=== PATIENT | female | born 2005 | race African-American/Black ===

== ENCOUNTER 2024-06-28 08:44 | Emergency (ER) | payer SELFPAY ==
[~2024-06-28] VITALS: Ht 170.2 cm; Wt 58.6 kg
[2024-06-28 08:49] VITALS: TEMP 98.7
[2024-06-28] MEDS ORDERED: Ondansetron 4 MG/2 ML VIAL IV ONE ×2 (09:30→12:30)
[2024-06-28] MEDS ORDERED: NS 1,000 ML IV ONE (09:30)
[2024-06-28 10:28] LABS: ALANINE AMINOTRANSFERASE 8 U/L (0-55); ALBUMIN 3.8 g/dL (3.5-5.0); ALKALINE PHOSPHATASE 65 U/L (40-150); ANION GAP 13 mmol/L (7-16); AST,SGOT 11 U/L (5-34); BILIRUBIN,TOTAL 0.4 mg/dL (0.2-1.2); CALCIUM 9.6 mg/dL (8.4-10.2); CHLORIDE 105 mEq/L (98-107); CREATININE, serum 0.74 mg/dL (0.57-1.11); GLUCOSE 89 mg/dL (70-99); LIPASE 58 U/L (8-78); POTASSIUM 3.5 mEq/L (3.5-4.5); SODIUM 135 mEq/L (136-145); TOTAL PROTEIN 7.2 g/dl (6.2-8.1)
[2024-06-28 10:29] LABS: BLOOD UREA NITROGEN < 5 mg/dL (7-19)
[2024-06-28 10:33] LABS: BASO % 0.2 % (0.0-2.0); EOS # 0.1 K/mm3 (0.0-0.7); EOS % 1.8 % (0.0-4.0); GRAN # 2.8 K/mm3 (1.4-6.5); GRAN % 63.6 % (42.2-75.2); HEMATOCRIT 39.5 % (35.0-45.0); HEMOGLOBIN 13.1 g/dl (12.0-15.0); LYMPH # 1.2 K/mm3 (1.2-3.4); LYMPH % 27.3 % (20.0-51.0); MEAN CELL VOLUME 88 fl (80.0-95.0); MEAN CORPUSCULAR HEMOGLOBIN 29 pg (26-32); MEAN CORPUSCULAR HGB CONC 33 g/dl (33.0-37.0); MONO # 0.3 K/mm3 (0.1-0.6); MONO % 6.9 % (1.7-9.3); PLATELET COUNT 285 K/mm3 (130-400); REDCELL DISTRIBUTION WIDTH-CV 13.8 % (11.5-14.5)
[2024-06-28 10:52] LABS: HCG,QUANTITATIVE 70140 mIU/mL
[2024-06-28 11:30] LABS: COLLECTION METHOD CLEAN CATCH
[2024-06-28 11:49] LABS: URINE APPEARANCE CLEAR (CLEAR/HAZY); URINE BLOOD NEGATIVE (NEGATIVE); URINE COLOR YELLOW (YELLOW); URINE GLUCOSE NEGATIVE (NEGATIVE); URINE KETONE 4+ (NEGATIVE); URINE NITRATE NEGATIVE (NEGATIVE); URINE PROTEIN(semi-quant) TRACE (NEGATIVE)
[2024-06-28] MEDS ORDERED: ZOFRAN ODT4 MG PO (12:08)
[2024-06-28] MEDS ORDERED: Cephalexin 500 MG CAP PO ONE (12:30)
[2024-06-28] MEDS ORDERED: CEPHALEXIN250 M1 PO (12:30)
[2024-06-28 12:40] VITALS: BP 120/74; PULSE 67
== END 2024-06-28 12:49 | disposition home or self-care (01) ==
LOC: COL.ER 08:44
PROVIDERS: Family Medicine
DX: O21.0 Mild hyperemesis gravidarum (principal); O23.41 Unspecified infection of urinary tract in pregnancy, first trimester; N39.0 Urinary tract infection, site not specified
CPT/HCPCS: J2405; J7030

== ENCOUNTER 2024-06-30 14:54 | Observation (INO) | payer OTHER ==
[~2024-06-30] VITALS: Ht 170.2 cm; Wt 58.2 kg
[~2024-06-30 14:54] MED LIST: CEPHALEXIN250 M1 PO; ZOFRAN ODT4 MG PO
[2024-06-30] MEDS ORDERED: LR 1,000 ML IV ONE (15:15)
[2024-06-30] MEDS ORDERED: D5LR 1,000 ML IV ONE (15:30)
[2024-06-30 15:33] LABS: BASO % 0.4 % (0.0-2.0); EOS % 0.8 % (0.0-4.0); GRAN # 2.7 K/mm3 (1.4-6.5); GRAN % 55.6 % (42.2-75.2); HEMATOCRIT 38.1 % (35.0-45.0); LYMPH # 1.6 K/mm3 (1.2-3.4); LYMPH % 32.9 % (20.0-51.0); MEAN CELL VOLUME 85 fl (80.0-95.0); MEAN CORPUSCULAR HEMOGLOBIN 29 pg (26-32); MEAN CORPUSCULAR HGB CONC 34 g/dl (33.0-37.0); MEAN PLATELET VOLUME 10.3 fl (7.4-10.4); MONO # 0.5 K/mm3 (0.1-0.6); MONO % 10.1 % (1.7-9.3); PLATELET COUNT 275 K/mm3 (130-400); RED BLOOD COUNT 4.47 M/mm3 (4.10-5.30); REDCELL DISTRIBUTION WIDTH-CV 13.7 % (11.5-14.5)
[2024-06-30 15:51] LABS: ALBUMIN 3.9 g/dL (3.5-5.0); BILIRUBIN,TOTAL 0.4 mg/dL (0.2-1.2); CALCIUM 9.3 mg/dL (8.4-10.2); CREATININE, serum 0.77 mg/dL (0.57-1.11); POTASSIUM 3.5 mEq/L (3.5-4.5); TOTAL PROTEIN 7.2 g/dl (6.2-8.1)
[2024-06-30 17:28] LABS: COLLECTION METHOD CLEAN CATCH
--- NOTE | 2024-06-30 17:30 | NUR ---
Pt to floor from ED for recurrent nausea and vomiting. Vs WNL. Pt denies LOF and VB. Pt states that she just moved here last week. Pt states that she is 13 weeks , but is unsure of her LMP; believes it was "January in the teens maybe the ". Pt also states that she has a hx of HTN, but resolved it with her diet. Pt also stated that she has been vomiting since she became and has lost almost 30 lbs. Pt came in to ED today because she was vomiting "bright red blood", and her stomach hurts. She has heartburn if she eats anything and vomits within an hour. Pt reported being the ED on monday as well with N/V, abdominal pain, and a headache that caused her right eye to be "messed up". Pt is currently taking Keflex for a UTI, but says that her nausea medication is no longer working for her.
[2024-06-30] MEDS ORDERED: Pantoprazole 40 MG in NS 10 ML IV SCH (17:33)
[2024-06-30 17:39] LABS: PH 5.5 (5.0-8.5); URINE APPEARANCE CLEAR (CLEAR/HAZY); URINE BLOOD NEGATIVE (NEGATIVE); URINE COLOR YELLOW (YELLOW); URINE GLUCOSE 3+ (NEGATIVE); URINE KETONE 4+ (NEGATIVE); URINE NITRATE NEGATIVE (NEGATIVE); URINE PROTEIN(semi-quant) NEGATIVE (NEGATIVE); URINE UROBILINOGEN 0.2 E.U/dL (0.2-1.0)
[2024-06-30 17:40] VITALS: BP 119/83; PULSE 69; TEMP 98.4
[2024-06-30] MEDS ORDERED: D5LR 1,000 ML IV SCH (17:45)
[2024-06-30] MEDS ORDERED: Cephalexin 500 MG CAP PO SCH (17:45)
[2024-06-30] MEDS ORDERED: PROMETHAZINE 12.5 MG RC PRN (17:45)
[2024-06-30] MEDS ORDERED: PRILOSEC 20MG20 MG PO (18:47)
[2024-06-30] MEDS ORDERED: REGLAN 10MG10 MG/TAB PO (18:48)
--- NOTE | 2024-06-30 19:30 | NUR ---
1930 IV FLUIDS STARTED AT INT SITE. SPITTING UP MUCOUS EVERY SO OFTEN. NO EMESIS. STATES HAS NO NAUSEA AT THIS TIME. UP TO BR WITH SOME ASSIST AND VOIDED. MARBELLA BEING UP WELL. VOICES NO OTHER COMPLAINTS.
[2024-06-30 20:00] VITALS: BP 125/71; PULSE 65; TEMP 99
[2024-06-30] MEDS ORDERED: PYRIDOXINE 25 MG PO SCH (21:00)
[2024-06-30] MEDS ORDERED: DOXYLAMINE 25 MG PO SCH (21:00)
[2024-06-30 21:17] LABS: HIV 1/2 Antibodies Non-Reactive; HIV-1p24 Antigen Non-Reactive
[2024-06-30] MEDS ORDERED: Folic Acid 1 MG,Thiamine 200 MG in NS 1,000 ML IV ONE (22:00)
[2024-07-01] VITALS: BP 124/78; PULSE 102; TEMP 98.8
--- NOTE | 2024-07-01 | NUR ---
0000 UP TO BR ON OWN TONIGHT WITH NO PROBLEMS. IV CONTS TO INFUSE PER PUMP. NO C/O OF ANY NAUSEA AT THIS TIME. SCHEDULE MED GIVEN.
[2024-07-01 04:00] VITALS: BP 106/66; PULSE 102; TEMP 98.3
[2024-07-01 07:15] VITALS: BP 116/72; PULSE 72; TEMP 98.5
[2024-07-01] MEDS ORDERED: Metoclopramide 10 MG TAB PO SCH (08:00)
[2024-07-01 09:31] LABS: TRICYCLIC ANTIDEPRESS URINE NEGATIVE (NEGATIVE)
[2024-07-01 10:36] LABS: MEAN CELL VOLUME 84 fl (80.0-95.0); MEAN CORPUSCULAR HGB CONC 35 g/dl (33.0-37.0); MEAN PLATELET VOLUME 10.2 fl (7.4-10.4); PLATELET COUNT 217 K/mm3 (130-400); RED BLOOD COUNT 3.48 M/mm3 (4.10-5.30); REDCELL DISTRIBUTION WIDTH-CV 13.7 % (11.5-14.5)
[2024-07-01 10:39] LABS: HEMATOCRIT 29.3 % (35.0-45.0); HEMOGLOBIN 10.1 g/dl (12.0-15.0); MEAN CORPUSCULAR HEMOGLOBIN 29 pg (26-32)
[2024-07-01 10:55] LABS: ALBUMIN 2.9 g/dL (3.5-5.0); ALKALINE PHOSPHATASE 46 U/L (40-150); ANION GAP 7 mmol/L (7-16); AST,SGOT 9 U/L (5-34); BILIRUBIN,TOTAL 0.3 mg/dL (0.2-1.2); CALCIUM 7.9 mg/dL (8.4-10.2); CHLORIDE 110 mEq/L (98-107); CREATININE, serum 0.68 mg/dL (0.57-1.11); GLUCOSE 95 mg/dL (70-99); POTASSIUM 3.5 mEq/L (3.5-4.5); SODIUM 136 mEq/L (136-145); TOTAL PROTEIN 5.1 g/dl (6.2-8.1)
[2024-07-01 11:10] LABS: BLOOD UREA NITROGEN < 5 mg/dL (7-19)
[2024-07-01 11:11] LABS: ALANINE AMINOTRANSFERASE < 6 U/L (0-55)
[2024-07-01] MEDS ORDERED: Folic Acid 1 MG,Thiamine 200 MG in NS 1,000 ML IV SCH (11:30)
[2024-07-01 13:00] VITALS: BP 108/66; PULSE 69; TEMP 98.3
[2024-07-01] MEDS ORDERED: DICLEGIS PO (14:44)
[2024-07-01] MEDS ORDERED: ZOFRAN ODT4 MG PO (14:44)
[2024-07-01] MEDS ORDERED: REGLAN 10MG10 MG/TAB PO (14:44)
[2024-07-01] MEDS ORDERED: PROTONIX 40MG T40 MG PO (14:45)
--- NOTE | 2024-07-01 16:30 | NUR ---
1630 PT PARTNER AT PT BEDSIDE, PT REQUESTING TO BE DISCHARGED. 1636 NOTIFIED, TELEPHONE ORDERS TO DISCHARGE PT. 1650 THIS RN DISCUSSING DISCHARGE INSTRUCTIONS PER TO FOLLOW BLAND/B.R.A.T. DIET, ATTEND SCHEDULED OB APPOINTMENTS AND PT NEEDS TO NOTIFY OB OFFICE TOMORROW IF NOT CONTACTED, TAKE PERSCRIBED MEDICATIONS ORDERED, AND CALL OB OFFICE OR HOSPITAL FOR ANY QUESTIONS OR CONCERNS. PT VERBALLY UNDERSTANDING WELL PT PARTNER, SIGNED DISCHARGE UNDERSTANDING. 1710 PT AND PT PARTNER AMBULATORY OFF UNIT PER THIS RN.
[2024-07-01 19:44] LABS: HEPATITIS B SURFACE ANTIGEN Negative (Negative)
== END 2024-07-01 17:10 | disposition home or self-care (01) ==
LOC: COL.ER 14:54 → OB 17:12
PROVIDERS: Emergency Medicine; ADMIT Student in an Organized Health Care Education/Training Program
DX: O21.0 Mild hyperemesis gravidarum (principal); N39.0 Urinary tract infection, site not specified; O23.41 Unspecified infection of urinary tract in pregnancy, first trimester; Z3A.13 13 weeks gestation of pregnancy
CPT/HCPCS: J2470; J2765; J3411; J7030; J7120; J7121

== ENCOUNTER 2024-08-04 12:33 | Emergency (ER) | payer MEDICAID ==
[~2024-08-04] VITALS: Ht 170.2 cm; Wt 59.1 kg
[~2024-08-04 12:33] MED LIST changes: +DICLEGIS PO; +PRILOSEC 20MG20 MG PO; +PROTONIX 40MG T40 MG PO; +REGLAN 10MG10 MG/TAB PO
[2024-08-04 12:39] VITALS: BP 131/84; TEMP 98.2
[2024-08-04] MEDS ORDERED: NS 1,000 ML IV ONE (13:00)
[2024-08-04] MEDS ORDERED: Ondansetron 4 MG/2 ML VIAL IV ONE (13:00)
[2024-08-04 13:28] LABS: COLLECTION METHOD CLEAN CATCH
[2024-08-04 13:32] LABS: BASO % 0.4 % (0.0-2.0); EOS # 0.1 K/mm3 (0.0-0.7); EOS % 1.7 % (0.0-4.0); GRAN # 3.2 K/mm3 (1.4-6.5); GRAN % 60.3 % (42.2-75.2); HEMOGLOBIN 11.9 g/dl (12.0-15.0); LYMPH # 1.6 K/mm3 (1.2-3.4); LYMPH % 29.8 % (20.0-51.0); MEAN CELL VOLUME 87 fl (80.0-95.0); MEAN CORPUSCULAR HEMOGLOBIN 29 pg (26-32); MEAN CORPUSCULAR HGB CONC 33 g/dl (33.0-37.0); MEAN PLATELET VOLUME 10.2 fl (7.4-10.4); MONO # 0.4 K/mm3 (0.1-0.6); MONO % 7.6 % (1.7-9.3); PH 5.5 (5.0-8.5); PLATELET COUNT 253 K/mm3 (130-400); RED BLOOD COUNT 4.09 M/mm3 (4.10-5.30); REDCELL DISTRIBUTION WIDTH-CV 13.2 % (11.5-14.5); URINE APPEARANCE CLEAR (CLEAR/HAZY); URINE BLOOD NEGATIVE (NEGATIVE); URINE COLOR YELLOW (YELLOW); URINE GLUCOSE NEGATIVE (NEGATIVE); URINE KETONE 1+ (NEGATIVE); URINE NITRATE NEGATIVE (NEGATIVE); URINE PROTEIN(semi-quant) NEGATIVE (NEGATIVE); URINE UROBILINOGEN 0.2 E.U/dL (0.2-1.0)
[2024-08-04 13:35] LABS: HEMATOCRIT 35.6 % (35.0-45.0)
[2024-08-04 13:57] LABS: ALBUMIN 3.6 g/dL (3.5-5.0); CALCIUM 9.7 mg/dL (8.4-10.2); CREATININE, serum 0.74 mg/dL (0.57-1.11)
[2024-08-04 14:18] LABS: BILIRUBIN,TOTAL 0.3 mg/dL (0.2-1.2)
[2024-08-04] MEDS ORDERED: Acetaminophen 500 MG TAB PO ONE (15:00)
[2024-08-04 15:55] VITALS: PULSE 78
== END 2024-08-04 15:55 | disposition home or self-care (01) ==
LOC: COL.ER 12:33
PROVIDERS: Physician Assistant
DX: O21.9 Vomiting of pregnancy, unspecified (principal); Z3A.18 18 weeks gestation of pregnancy
CPT/HCPCS: J2405; J7030